=== PATIENT | female | born 1975 | race Caucasian/White ===

== ENCOUNTER 2017-12-22 19:14 | Emergency (ER) | payer MEDICAID ==
[~2017-12-22] VITALS: Ht 160 cm; Wt 50.6 kg
[2017-12-22] MEDS ORDERED: PENI500T2 PO (21:05)
[2017-12-22] MEDS ORDERED: HYDR-3965 PO (21:05)
[2017-12-22] MEDS ORDERED: HYDROcodone/acetaminophen 5mg/325mg tablet PO ONE (21:05)
[2017-12-22 21:57] VITALS: BP 130/90
== END 2017-12-22 22:21 | disposition home or self-care (01) ==
LOC: ER 19:15
DX: S02.5XXA Fracture of tooth (traumatic), initial encounter for closed fracture (principal); K08.89 Other specified disorders of teeth and supporting structures; J45.909 Unspecified asthma, uncomplicated; G89.29 Other chronic pain; Z88.1 Allergy status to other antibiotic agents; X58.XXXA Exposure to other specified factors, initial encounter; Y93.89 Activity, other specified; Y92.89 Other specified places as the place of occurrence of the external cause; Y99.9 Unspecified external cause status
CPT/HCPCS: 93005; 99283

== ENCOUNTER 2020-01-07 20:06 | Emergency (ER) | payer MEDICAID ==
[~2020-01-07] VITALS: Ht 160 cm; Wt 65.9 kg
[2020-01-07 21:59] LABS: BASOPHILS # (AUTO) 0.1 X10'3 (0-0.2); BASOPHILS % (AUTO) 0.7 % (0-1); EOSINOPHILS % (AUTO) 0.4 % (0-6); HEMATOCRIT 42.6 % (35.0-45.0); HEMOGLOBIN 14.3 g/dl (12.0-16.0); LYMPHOCYTES # (AUTO) 0.6 X10'3 (1.1-4.8); LYMPHOCYTES % (AUTO) 4.5 % (21-51); MEAN CORPUSCULAR HGB CONC 33.6 g/dL (33.0-36.5); MEAN CORPUSCULAR VOLUME 86.3 FL (78-98); MEAN PLATELET VOLUME 9.2 FL (7.4-10.4); MONOCYTES # (AUTO) 0.6 X10'3 (0-0.9); MONOCYTES % (AUTO) 4.5 % (2-12); NEUTROPHILS # (AUTO) 11.2 X10'3 (1.8-7.7); NEUTROPHILS % (AUTO) 89.9 % (42-75); PLATELET COUNT 256 X10'3 (140-440); RED BLOOD COUNT 4.94 X10'6 (4.20-5.60); RED CELL DISTRIBUTION WIDTH 14.1 % (11.5-14.5); WHITE BLOOD COUNT 12.5 X10'3 (4.5-11.0)
[2020-01-07 22:10] LABS: ALANINE AMINOTRANSFERASE 26 U/L (12-78); ALBUMIN 3.1 G/DL (3.4-5.0); ALBUMIN/GLOBULIN RATIO 0.9 (1.1-1.5); ALKALINE PHOSPHATASE 101 IU/L (46-116); ANION GAP 3 (8-16); ASPARTATE AMINO TRANSFERASE 15 U/L (10-37); BILIRUBIN,TOTAL 0.8 MG/DL (0.1-1.0); BLOOD UREA NITROGEN 11 MG/DL (7-18); BUN/CREATININE RATIO 11.2 (6.6-38.0); CALCIUM 8.3 MG/DL (8.5-10.1); CHLORIDE 106 MMOL/L (99-107); CREATININE 0.98 MG/DL (0.40-0.90); GLUCOSE 82 MG/DL (70-104); POTASSIUM 3.5 MMOL/L (3.5-5.1); SODIUM 139 MMOL/L (135-145); TOTAL PROTEIN 6.6 G/DL (6.4-8.2); eGFR 61 ML/MIN
[2020-01-07] MEDS ORDERED: CefTRIAXone/D5W-Rocephin 1gm 50 ML IV ONE (22:25)
[2020-01-07] MEDS ORDERED: clindamycin 150mg capsule PO ONE (22:25)
[2020-01-07] MEDS ORDERED: iohexol 300mg/ml 100ml inj. ONE (22:31)
--- NOTE | 2020-01-07 22:40 | NUR ---
PT TO CT VIA W/C
[2020-01-07] MEDS ORDERED: ondansetron/PF 4mg/2ml inj IV ONE (23:00)
[2020-01-07] MEDS ORDERED: morphine 4 MG/ML inj SYRINge IV ONE (23:00)
[2020-01-07] MEDS ORDERED: LIDOcaine 1% W/epiNEPHrine 1:200,000 10ml vial IJ ONE (23:05)
[2020-01-07] MEDS ORDERED: predniSONE 20 mg tablet PO ONE (23:50)
[2020-01-07] MEDS ORDERED: metroNIDAZOLE 500mg tablet PO ONE (23:50)
[2020-01-07] MEDS ORDERED: PRED20TA PO (23:57)
[2020-01-07] MEDS ORDERED: METR-159 PO (23:57)
[2020-01-07] MEDS ORDERED: CLIN-143 PO (23:57)
[2020-01-08 00:07] VITALS: BP 144/92
== END 2020-01-08 00:12 | disposition home or self-care (01) ==
LOC: ER 20:07
DX: K02.9 Dental caries, unspecified (principal); R22.0 Localized swelling, mass and lump, head; L03.211 Cellulitis of face; L03.213 Periorbital cellulitis; H05.012 Cellulitis of left orbit; J45.909 Unspecified asthma, uncomplicated; G89.29 Other chronic pain; F17.200 Nicotine dependence, unspecified, uncomplicated; Z79.2 Long term (current) use of antibiotics; Z79.899 Other long term (current) drug therapy
CPT/HCPCS: 36415; 70487; 70491; 80053; 85025; 96374; 96375; 99285; J0696; J2270; J2405; J7512; Q9967; J3490

== ENCOUNTER 2021-05-25 00:51 | Emergency (ER) | payer MEDICAID ==
[~2021-05-25] VITALS: Ht 157.5 cm; Wt 68.5 kg
[2021-05-25 00:59] VITALS: BP 117/69
--- NOTE | 2021-05-25 01:30 | NUR ---
PATIENT MADE MULTIPLE PROFANE STATEMENTS THAT THIS HOSPITAL WAS MORE CONCERNED WITH COVID, SHE USED THE F--- WORD MULTIPLE TIMES WITH THIS MANAGER OF COMPLIANCE. [place] JUMPED UP AND RAN OUT OF ED PRIOR TO BEING FULLY TRIAGED OR TREATED.
== END 2021-05-25 01:51 | disposition left against medical advice (07) ==
LOC: ER 00:51
DX: R10.84 Generalized abdominal pain (principal); Z53.21 Procedure and treatment not carried out due to patient leaving prior to being seen by health care provider

== ENCOUNTER 2021-05-27 15:49 | Emergency (ER) | payer MEDICAID ==
[~2021-05-27] VITALS: Ht 157.5 cm; Wt 74.8 kg
[2021-05-27 16:53] LABS: BASOPHILS # (AUTO) 0.1 X10'3 (0-0.2); BASOPHILS % (AUTO) 0.2 % (0-1); EOSINOPHILS % (AUTO) 0.1 % (0-6); HEMATOCRIT 36.8 % (35.0-45.0); HEMOGLOBIN 12.2 g/dl (12.0-16.0); LYMPHOCYTES # (AUTO) 0.7 X10'3 (1.1-4.8); LYMPHOCYTES % (AUTO) 1.3 % (21-51); MEAN CORPUSCULAR HEMOGLOBIN 27.8 PG (27.0-31.0); MEAN CORPUSCULAR HGB CONC 33.1 g/dL (33.0-36.5); MEAN CORPUSCULAR VOLUME 83.9 FL (78-98); MEAN PLATELET VOLUME 8.8 FL (7.4-10.4); MONOCYTES # (AUTO) 1.6 X10'3 (0-0.9); MONOCYTES % (AUTO) 2.9 % (2-12); NEUTROPHILS # (AUTO) 51.4 X10'3 (1.8-7.7); NEUTROPHILS % (AUTO) 95.5 % (42-75); PLATELET COUNT 495 X10'3 (140-440); RED BLOOD COUNT 4.38 X10'6 (4.20-5.60); RED CELL DISTRIBUTION WIDTH 14.6 % (11.5-14.5)
[2021-05-27 16:56] LABS: WHITE BLOOD COUNT 53.8 X10'3 (4.5-11.0)
[2021-05-27 17:03] LABS: ALANINE AMINOTRANSFERASE 37 U/L (12-78); ALBUMIN/GLOBULIN RATIO 0.5 (1.1-1.5); ALKALINE PHOSPHATASE 215 IU/L (46-116); ANION GAP 12 (8-16); ASPARTATE AMINO TRANSFERASE 26 U/L (10-37); BILIRUBIN,TOTAL 0.6 MG/DL (0.1-1.0); BLOOD UREA NITROGEN 19 MG/DL (7-18); BUN/CREATININE RATIO 15.8 (6.6-38.0); CHLORIDE 98 MMOL/L (99-107); GLUCOSE 81 MG/DL (70-104); LIPASE < 50 U/L (73-393); POTASSIUM 3.2 MMOL/L (3.5-5.1); SODIUM 135 MMOL/L (135-145); TOTAL CARBON DIOXIDE 24.7 MMOL/L (24-32); TOTAL PROTEIN 6.4 G/DL (6.4-8.2); eGFR 48 ML/MIN
[2021-05-27 17:12] LABS: TOTAL CELLS COUNTED 100
[2021-05-27 17:14] LABS: BURR CELLS FEW; ELLIPTOCYTES FEW; PLATELET ESTIMATE INCREASED; POLYCHROMASIA FEW
[2021-05-27] MEDS ORDERED: morphine 4 MG/ML inj SYRINge IV ONE ×2 (17:25→22:50)
[2021-05-27] MEDS ORDERED: normal saline 1000ML IV soln IVB ONE ×2 (17:25)
[2021-05-27] MEDS ORDERED: ondansetron/PF 4mg/2ml inj IV ONE (17:25)
[2021-05-27 17:54] LABS: MAGNESIUM 1.2 MG/DL (1.5-2.4)
[2021-05-27] MEDS ORDERED: vancomycin/NS 1 GM ADD-VANTAGE 250 ML IV ONE (18:35)
[2021-05-27] MEDS ORDERED: piperacillin/tazo 3.375gm/50ml 50 ML IV ONE (18:35)
[2021-05-27 19:28] LABS: CLARITY,URINE SLIGHTLY CLOUDY (Clear); GLUCOSE, URINE NEGATIVE (Neg); KETONES,URINE TRACE mg/dl (Neg); LEUKOCYTE ESTERASE ,URINE NEGATIVE (Neg); NITRITES, URINE POSITIVE (Neg); OCCULT BLOOD,URINE NEGATIVE (Neg); PH,URINE 5.5 (4.8-8.0); PROTEIN,URINE 30 mg/dl (Neg); UROBILINOGEN,URINE 0.2 E.U/dL (0.2-1.0)
[2021-05-27 19:31] LABS: COLOR,URINE AMBER (Yellow); UA COLLECTION TYPE CLN CATCH MIDSTREAM
[2021-05-27 19:35] LABS: MUCUS STRANDS MANY /LPF (Neg); SQUAMOUS EPITHELIAL CELL,UR MANY /LPF (FEW)
[2021-05-27 19:37] LABS: BACTERIA,URINE 3+ /HPF (Neg); FINE GRANULAR CAST 0-3 /LPF (NEGATIVE); RBC,URINE NONE SEEN /HPF (0-2)
[2021-05-27 19:40] LABS: URINE HCG NEGATIVE (NEG)
[2021-05-27] MEDS ORDERED: NO HOME MEDS (21:19)
[2021-05-27] MEDS ORDERED: potassium Cl 20 mEq SR tablet PO ONE (22:20)
[2021-05-27] MEDS ORDERED: normal saline 1000ml 1,000 ML IV ONE (22:20)
[2021-05-27] MEDS ORDERED: metroNIDAZOLE-Flagyl 500mg/NS 100 ML IV SCH (23:50)
[2021-05-27] MEDS ORDERED: doxycycline inj 100 MG in normal saline 100ml IV soln 100 ML IV SCH (23:50)
[2021-05-27] MEDS ORDERED: CefTRIAXone 2gm/D5W 50ml BAG 50 ML IV SCH (23:50)
[2021-05-28] MEDS ORDERED: ondansetron/PF 4mg/2ml inj IV ONE (04:50)
[2021-05-28] MEDS ORDERED: morphine 4 MG/ML inj SYRINge IV ONE (04:50)
[2021-05-28] MEDS ORDERED: normal saline 1000ML IV soln IVB ONE (05:15)
--- NOTE | 2021-05-28 06:57 | NUR ---
PT REPORTING NEW ONSET CHEST HEAVINESS. DR. SANTIAGO/NYLA NOTIFIED. AWAITING ORDERS.
--- NOTE | 2021-05-28 07:39 | NUR ---
PT AMBULATORY TO BATHROOM WITHOUT ASSIST.
[2021-05-28] MEDS ORDERED: CefTRIAXone/D5W-Rocephin 1gm 50 ML IV ONE (07:50)
[2021-05-28 08:05] LABS: BASOPHILS # (AUTO) 0.1 X10'3 (0-0.2); BASOPHILS % (AUTO) 0.1 % (0-1); EOSINOPHILS # (AUTO) 0.1 X10'3 (0-0.9); EOSINOPHILS % (AUTO) 0.2 % (0-6); HEMATOCRIT 35.3 % (35.0-45.0); HEMOGLOBIN 11.8 g/dl (12.0-16.0); LYMPHOCYTES # (AUTO) 0.7 X10'3 (1.1-4.8); LYMPHOCYTES % (AUTO) 1.4 % (21-51); MEAN CORPUSCULAR HEMOGLOBIN 28.1 PG (27.0-31.0); MEAN CORPUSCULAR HGB CONC 33.5 g/dL (33.0-36.5); MEAN PLATELET VOLUME 8.7 FL (7.4-10.4); MONOCYTES # (AUTO) 1.1 X10'3 (0-0.9); MONOCYTES % (AUTO) 2.3 % (2-12); NEUTROPHILS # (AUTO) 45.7 X10'3 (1.8-7.7); PLATELET COUNT 464 X10'3 (140-440); RED CELL DISTRIBUTION WIDTH 14.8 % (11.5-14.5)
[2021-05-28 08:13] LABS: WHITE BLOOD COUNT 47.7 X10'3 (4.5-11.0)
[2021-05-28 08:53] LABS: PLATELET ESTIMATE INCREASED; TOTAL CELLS COUNTED 100
[2021-05-28 08:54] VITALS: BP 115/72
[2021-05-28 08:54] LABS: BURR CELLS 2+
--- NOTE | 2021-05-28 09:18 | NUR ---
pt is refusing MRSA testing "no I do not want to do it"
[2021-05-28] MEDS ORDERED: iohexol 350MG/ML 100ml bottle IV ONE (10:27)
--- NOTE | 2021-05-28 11:01 | NUR ---
REACH AT BEDSIDE TO FLY PT TO [facility].
== END 2021-05-28 11:06 | disposition admitted as inpatient to this hospital (09) ==
LOC: ER 15:50
DX: N73.8 Other specified female pelvic inflammatory diseases (principal); N18.9 Chronic kidney disease, unspecified; J45.909 Unspecified asthma, uncomplicated; F17.210 Nicotine dependence, cigarettes, uncomplicated; G89.29 Other chronic pain; M54.9 Dorsalgia, unspecified
CPT/HCPCS: 36415; 71275; 74176; 76830; 76856; 80053; 81001; 81025; 83605; 83690; 83735; 84145; 85007; 85025; 87040; 87210; 87491; 87591; 93005; 93976; 96361; 96365; 96366; 96367; 96368; 96375; 96376; 99285; J0696; J2270; J2405; J2543; J3370; J3490; J7030; Q9967

== ENCOUNTER 2021-06-05 00:23 | Emergency (ER) | payer MEDICAID ==
[~2021-06-05] VITALS: Ht 160 cm; Wt 77.3 kg
[~2021-06-05 00:23] MED LIST: NO HOME MEDS
[2021-06-05] MEDS ORDERED: pantoprazole 40MG/D5 100ML BAG 100 ML IV ONE (01:55)
[2021-06-05] MEDS ORDERED: normal saline 1000ML IV soln IVB ONE (01:55)
[2021-06-05] MEDS ORDERED: ondansetron/PF 4mg/2ml inj IV ONE (01:55)
[2021-06-05] MEDS ORDERED: morphine 4 MG/ML inj SYRINge IV ONE ×2 (01:55→12:10)
[2021-06-05] MEDS ORDERED: pantoprazole 40MG/NS 100ML BAG 100 ML IV ONE (02:02)
[2021-06-05 02:29] LABS: BASOPHILS # (AUTO) 0.1 X10'3 (0-0.2); BASOPHILS % (AUTO) 0.7 % (0-1); EOSINOPHILS # (AUTO) 0.3 X10'3 (0-0.9); EOSINOPHILS % (AUTO) 2.2 % (0-6); HEMATOCRIT 32.8 % (35.0-45.0); HEMOGLOBIN 10.8 g/dl (12.0-16.0); LYMPHOCYTES # (AUTO) 1.9 X10'3 (1.1-4.8); MEAN CORPUSCULAR HEMOGLOBIN 27.5 PG (27.0-31.0); MEAN CORPUSCULAR HGB CONC 32.9 g/dL (33.0-36.5); MEAN CORPUSCULAR VOLUME 83.8 FL (78-98); MEAN PLATELET VOLUME 8.3 FL (7.4-10.4); MONOCYTES # (AUTO) 1.4 X10'3 (0-0.9); NEUTROPHILS # (AUTO) 10.6 X10'3 (1.8-7.7); NEUTROPHILS % (AUTO) 74.1 % (42-75); PLATELET COUNT 922 X10'3 (140-440); RED BLOOD COUNT 3.91 X10'6 (4.20-5.60); RED CELL DISTRIBUTION WIDTH 15.1 % (11.5-14.5); WHITE BLOOD COUNT 14.3 X10'3 (4.5-11.0)
[2021-06-05 02:38] LABS: ALANINE AMINOTRANSFERASE 12 U/L (12-78); ALBUMIN 1.1 G/DL (3.4-5.0); ALBUMIN/GLOBULIN RATIO 0.2 (1.1-1.5); ANION GAP 1 (8-16); ASPARTATE AMINO TRANSFERASE 17 U/L (10-37); BILIRUBIN,TOTAL 0.2 MG/DL (0.1-1.0); BLOOD UREA NITROGEN 8 MG/DL (7-18); BUN/CREATININE RATIO 11.6 (6.6-38.0); CALCIUM 7.9 MG/DL (8.5-10.1); CHLORIDE 107 MMOL/L (99-107); CREATININE 0.69 MG/DL (0.40-0.90); GLUCOSE 93 MG/DL (70-104); LIPASE 156 U/L (73-393); POTASSIUM 4.2 MMOL/L (3.5-5.1); SODIUM 141 MMOL/L (135-145); TOTAL CARBON DIOXIDE 32.7 MMOL/L (24-32); TOTAL PROTEIN 5.7 G/DL (6.4-8.2); eGFR > 90 ML/MIN
[2021-06-05 02:43] LABS: CLARITY,URINE CLOUDY (Clear); COLOR,URINE YELLOW (Yellow); GLUCOSE, URINE NEGATIVE (Neg); KETONES,URINE NEGATIVE (Neg); LEUKOCYTE ESTERASE ,URINE NEGATIVE (Neg); NITRITES, URINE NEGATIVE (Neg); OCCULT BLOOD,URINE NEGATIVE (Neg); PROTEIN,URINE NEGATIVE (Neg); UROBILINOGEN,URINE 0.2 E.U/dL (0.2-1.0)
[2021-06-05 02:48] LABS: UA COLLECTION TYPE URINAL
[2021-06-05 02:53] LABS: BACTERIA,URINE FEW /HPF (Neg); RBC,URINE 0-2 /HPF (0-2); WBC,URINE 0-4 /HPF (0-4)
[2021-06-05 02:54] LABS: MUCUS STRANDS FEW /LPF (Neg); SQUAMOUS EPITHELIAL CELL,UR MANY /LPF (FEW); URINE AMPHETAMINE SCREEN NEGATIVE (Neg); URINE BARBITUATE SCREEN NEGATIVE (Neg); URINE BENZODIAZEPINES SCREEN NEGATIVE (Neg); URINE CANNABINOID SCREEN NEGATIVE (Neg); URINE COCAINE SCREEN NEGATIVE (Neg); URINE METHADONE SCREEN NEGATIVE (Neg); URINE OPIATE SCREEN NEGATIVE (Neg); URINE PHENCYCLIDINE SCREEN NEGATIVE (Neg)
[2021-06-05 04:28] LABS: TOTAL CELLS COUNTED 100
[2021-06-05 04:29] LABS: LARGE PLATELETS FEW; PLATELET ESTIMATE INCREASED
[2021-06-05] MEDS ORDERED: HYDROcodone/acetaminophen 10/325mg tab PO ONE (08:20)
[2021-06-05] MEDS ORDERED: iohexol 300mg/ml 100ml inj. ONE (09:38)
[2021-06-05] MEDS ORDERED: HYDROcodone/acetaminophen 5mg/325mg tablet PO ONE (13:40)
[2021-06-05] MEDS ORDERED: ciprofloxacin 250mg tablet PO ONE (13:40)
[2021-06-05] MEDS ORDERED: HYDR-3965 PO (13:45)
[2021-06-05] MEDS ORDERED: ONDA-103 PO (13:45)
[2021-06-05] MEDS ORDERED: METR-159 PO (13:45)
[2021-06-05] MEDS ORDERED: CIPR-202 PO (13:45)
[2021-06-05 14:53] VITALS: BP 132/77
== END 2021-06-05 14:45 | disposition home or self-care (01) ==
LOC: ER 00:23
DX: T81.89XA Other complications of procedures, not elsewhere classified, initial encounter (principal); R11.2 Nausea with vomiting, unspecified; R10.84 Generalized abdominal pain; J45.909 Unspecified asthma, uncomplicated; G89.29 Other chronic pain; F17.200 Nicotine dependence, unspecified, uncomplicated; Z98.890 Other specified postprocedural states; Z98.51 Tubal ligation status; Z79.2 Long term (current) use of antibiotics; Z79.899 Other long term (current) drug therapy
CPT/HCPCS: 36415; 74177; 80053; 80305; 81001; 83605; 83690; 84145; 85007; 85025; 96374; 96375; 96376; 99285; C9113; J2270; J2405; J7030; Q9967

== ENCOUNTER 2021-08-27 00:29 | Emergency (ER) | payer MEDICAID ==
[~2021-08-27] VITALS: Ht 162.6 cm; Wt 75.0 kg
[~2021-08-27 00:29] MED LIST changes: +ONDA-103 PO
[2021-08-27 00:42] VITALS: BP 156/75
== END 2021-08-27 03:15 | disposition left against medical advice (07) ==
LOC: ER 00:29
DX: R10.9 Unspecified abdominal pain (principal); Z53.21 Procedure and treatment not carried out due to patient leaving prior to being seen by health care provider

== ENCOUNTER 2022-01-11 15:43 | Emergency (ER) | payer MEDICAID ==
[~2022-01-11] VITALS: Ht 160 cm; Wt 68.2 kg
[2022-01-11 16:22] VITALS: BP 137/87
[2022-01-12] MEDS ORDERED: CLIN300C71 PO (18:56)
[2022-01-12] MEDS ORDERED: HYDR-3965 PO (18:59)
== END 2022-01-11 21:00 | disposition left against medical advice (07) ==
LOC: ER 15:44
DX: K08.89 Other specified disorders of teeth and supporting structures (principal); Z53.21 Procedure and treatment not carried out due to patient leaving prior to being seen by health care provider

== ENCOUNTER 2022-01-12 10:57 | Emergency (ER) | payer MEDICAID ==
[~2022-01-12] VITALS: Ht 160 cm; Wt 69.1 kg
[2022-01-12 11:32] VITALS: BP 137/83
[2022-01-12] MEDS ORDERED: CLIN300C71 PO (18:56)
[2022-01-12] MEDS ORDERED: HYDR-3965 PO (18:59)
== END 2022-01-12 14:33 | disposition left against medical advice (07) ==
LOC: ER 10:58
DX: R22.0 Localized swelling, mass and lump, head (principal); Z53.21 Procedure and treatment not carried out due to patient leaving prior to being seen by health care provider

== ENCOUNTER 2022-01-12 17:54 | Emergency (ER) | payer MEDICAID ==
[~2022-01-12] VITALS: Ht 160 cm; Wt 70.5 kg
[2022-01-12 18:39] VITALS: BP 137/88
[2022-01-12] MEDS ORDERED: CLIN300C71 PO (18:56)
[2022-01-12] MEDS ORDERED: HYDR-3965 PO (18:59)
== END 2022-01-12 19:10 | disposition home or self-care (01) ==
LOC: ER 17:55
DX: K04.7 Periapical abscess without sinus (principal); H92.01 Otalgia, right ear; G89.29 Other chronic pain; M54.9 Dorsalgia, unspecified; J45.909 Unspecified asthma, uncomplicated; Z79.899 Other long term (current) drug therapy
CPT/HCPCS: 99283

== ENCOUNTER 2022-12-01 02:38 | Emergency (ER) | payer SELFPAY ==
[~2022-12-01] VITALS: Ht 160 cm; Wt 68.2 kg
[2022-12-01 02:57] VITALS: BP 141/96; PULSE 77; RESP 14; O2SAT 99
[2022-12-01] MEDS ORDERED: ONDA4TAB12 PO (03:27)
[2022-12-01 03:37] VITALS: TEMP 98.6
== END 2022-12-01 03:40 | disposition home or self-care (01) ==
LOC: ER 02:39
DX: R19.7 Diarrhea, unspecified (principal); J45.909 Unspecified asthma, uncomplicated; Z79.899 Other long term (current) drug therapy; Z98.890 Other specified postprocedural states; Z98.51 Tubal ligation status
CPT/HCPCS: 99283

== ENCOUNTER 2022-12-27 17:29 | Emergency (ER) | payer SELFPAY ==
[~2022-12-27] VITALS: Ht 162.6 cm; Wt 80.0 kg
[~2022-12-27 17:29] MED LIST changes: +ONDA4TAB12 PO
[2022-12-27 17:33] VITALS: BP 146/92; PULSE 99; RESP 18; TEMP 97.8; O2SAT 99
[2022-12-27] MEDS ORDERED: AMOX-101 PO (17:45)
[2022-12-27] MEDS ORDERED: HYDR-3972 PO (17:45)
== END 2022-12-27 18:36 | disposition home or self-care (01) ==
LOC: ER 17:30
DX: K05.20 Aggressive periodontitis, unspecified (principal); J45.909 Unspecified asthma, uncomplicated; G89.29 Other chronic pain; Z98.51 Tubal ligation status; Z98.891 History of uterine scar from previous surgery; Z79.2 Long term (current) use of antibiotics; Z79.899 Other long term (current) drug therapy
CPT/HCPCS: 99283

== ENCOUNTER 2023-10-11 00:22 | Emergency (ER) | payer OTHER ==
[~2023-10-11] VITALS: Ht 160 cm; Wt 69.0 kg
[~2023-10-11 00:22] MED LIST changes: +ONDA-243 PO; -ONDA4TAB12 PO
[2023-10-11 00:24] VITALS: TEMP 97.8
[2023-10-11 04:00] VITALS: O2SAT 98
[2023-10-11 05:00] VITALS: BP 136/81; PULSE 78; RESP 16
[2023-10-11] MEDS: LIDOcaine 1% W/epiNEPHrine 1:100,000 20ml vial IJ ONE ×2 (05:02→05:32)
[2023-10-11] MEDS: MIDAZolam 5mg/ml 2ml vial IM ONE (05:38)
== END 2023-10-11 08:07 | disposition home or self-care (01) ==
LOC: ER 00:23
DX: S81.011A Laceration without foreign body, right knee, initial encounter (principal); J45.909 Unspecified asthma, uncomplicated; F17.200 Nicotine dependence, unspecified, uncomplicated; Z98.890 Other specified postprocedural states; W18.39XA Other fall on same level, initial encounter; Y93.89 Activity, other specified; Y92.89 Other specified places as the place of occurrence of the external cause; Y99.8 Other external cause status
CPT/HCPCS: 12034; 99284; A6222; A6223; J2250; A6258; A6402; A6446; A6449; A6455

== ENCOUNTER 2024-03-01 00:52 | Emergency (ER) | payer MEDICAID ==
[~2024-03-01] VITALS: Ht 160 cm; Wt 71.2 kg
[2024-03-01 02:04] LABS: BASOPHILS # (AUTO) 0.1 X10'3 (0-0.2); HEMOGLOBIN 14.2 g/dl (12.0-16.0); LYMPHOCYTES # (AUTO) 1.6 X10'3 (1.1-4.8)
[2024-03-01 02:06] LABS: BASOPHILS % (AUTO) 0.7 % (0-1); EOSINOPHILS # (AUTO) 0.3 X10'3 (0-0.9); EOSINOPHILS % (AUTO) 1.9 % (0-6); HEMATOCRIT 42.4 % (35.0-45.0); LYMPHOCYTES % (AUTO) 11.4 % (21-51); MEAN CORPUSCULAR HEMOGLOBIN 29.2 PG (27.0-31.0); MEAN CORPUSCULAR HGB CONC 33.6 g/dL (33.0-36.5); MEAN CORPUSCULAR VOLUME 86.8 FL (78-98); MEAN PLATELET VOLUME 9.6 FL (7.4-10.4); MONOCYTES # (AUTO) 1.1 X10'3 (0-0.9); NEUTROPHILS # (AUTO) 11.1 X10'3 (1.8-7.7); PLATELET COUNT 331 X10'3 (140-440); RED BLOOD COUNT 4.88 X10'6 (4.20-5.60); RED CELL DISTRIBUTION WIDTH 13.9 % (11.5-14.5); WHITE BLOOD COUNT 14.2 X10'3 (4.5-11.0)
[2024-03-01] MEDS: aspirin 325mg tablet PO ONE (02:08)
[2024-03-01] MEDS: DOXYCYCLINE 100MG CAPSULE PO STA (02:08)
[2024-03-01 02:11] LABS: APTT 26 SECONDS (22-32); D-DIMER 0.36 MG/L FEU (0-0.50); INR 0.9 INR; PROTHROMBIN TIME 9.8 SECONDS (9.0-12.0)
[2024-03-01 02:32] LABS: ANION GAP 6 (8-16); BLOOD UREA NITROGEN 9 MG/DL (7-18); CHLORIDE 103 MMOL/L (99-107); CREATININE 0.99 MG/DL (0.40-0.90); GLUCOSE 85 MG/DL (70-104); SODIUM 137 MMOL/L (135-145); TOTAL CARBON DIOXIDE 28.5 MMOL/L (24-32)
[2024-03-01 02:33] LABS: ALBUMIN 3.5 G/DL (3.4-5.0); BUN/CREATININE RATIO 9.1 (10.0-20.0); C-REACTIVE PROTEIN 0.98 MG/DL (0.0-0.5); CALCIUM 8.7 MG/DL (8.5-10.1); MAGNESIUM 1.7 MG/DL (1.5-2.4); PRO BRAIN NATRIURETIC PEPTIDE 100 PG/ML (0-125); eCRCL 56 ML/MIN; eGFR 59 ML/MIN
[2024-03-01] MEDS ORDERED: SULF1TAB49 PO (02:42)
[2024-03-01] MEDS ORDERED: CEPH-585 PO (02:42)
[2024-03-01] MEDS ORDERED: rifampin 300mg capsule PO SCH (02:45)
[2024-03-01] MEDS: sulfamethoxazole/trimethoprim DS (800/160mg) tablet PO ONE (03:03)
[2024-03-01] MEDS: CefTRIAXone 2gm/D5W 50ml BAG 50 ML IV ONE (03:04)
[2024-03-01 03:23] LABS: LARGE PLATELETS FEW; PLATELET ESTIMATE NORMAL
[2024-03-01 03:27] LABS: BILIRUBIN,URINE NEGATIVE (Neg); CLARITY,URINE CLOUDY (Clear); COLOR,URINE YELLOW (Yellow); GLUCOSE, URINE NEGATIVE (Neg); KETONES,URINE NEGATIVE (Neg); LEUKOCYTE ESTERASE ,URINE MODERATE (Neg); NITRITES, URINE POSITIVE (Neg); OCCULT BLOOD,URINE TRACE-INTACT (Neg); PROTEIN,URINE 30 mg/dl (Neg); UROBILINOGEN,URINE 0.2 E.U/dL (0.2-1.0)
[2024-03-01] MEDS: rifampin 300mg capsule PO ONE (03:35)
[2024-03-01 03:54] LABS: UA COLLECTION TYPE NON-SPECIFIED
[2024-03-01 03:59] LABS: SQUAMOUS EPITHELIAL CELL,UR MANY /LPF (FEW); WBC,URINE TNTC /HPF (0-4)
[2024-03-01 04:00] LABS: BACTERIA,URINE 1+ /HPF (Neg); RBC,URINE 0-2 /HPF (0-2)
[2024-03-01 04:01] LABS: MUCUS STRANDS NONE SEEN /LPF (Neg)
[2024-03-01 04:07] VITALS: BP 142/81; PULSE 87; RESP 16; TEMP 98; O2SAT 99
== END 2024-03-01 04:14 | disposition home or self-care (01) ==
LOC: ER 00:54
DX: L03.115 Cellulitis of right lower limb (principal); M25.571 Pain in right ankle and joints of right foot; N39.0 Urinary tract infection, site not specified; J45.909 Unspecified asthma, uncomplicated; G89.29 Other chronic pain; M54.9 Dorsalgia, unspecified; Z98.51 Tubal ligation status; Z98.890 Other specified postprocedural states; Z79.899 Other long term (current) drug therapy
CPT/HCPCS: 36415; 71045; 73610; 80048; 81001; 83605; 83735; 83880; 84145; 85008; 85025; 85379; 85610; 85730; 86140; 87040; 93005; 93971; 96365; 99285; J0696